=== PATIENT | male | born 1935 | race Caucasian/White ===

== ENCOUNTER 2017-03-20 08:33 | Day surgery (SDC) | payer OTHER, BC ==
[~2017-03-20] VITALS: Ht 180.3 cm; Wt 74.9 kg
[~2017-03-20 08:33] MED LIST: FLOMAX0.4 MG PO; PROSCAR5 MG PO; VIBRAMYCIN100 MG PO
[2017-03-20 09:58] VITALS: BP 141/76
[2017-03-20 12:47] VITALS: BP 134/90
[2017-03-20 13:16] VITALS: BP 130/60
== END 2017-03-20 13:30 | disposition home or self-care (01) ==
LOC: SDC 08:33
PROC: 08B43ZZ Excision of Right Vitreous, Percutaneous Approach (ICD-10-PCS; principal; 2017-03-20)
DX: H43.393 Other vitreous opacities, bilateral (principal); C44.92 Squamous cell carcinoma of skin, unspecified; Z82.49 Family history of ischemic heart disease and other diseases of the circulatory system
CPT/HCPCS: J0690; J3300